=== PATIENT | female | born 1980 | race Two or more races ===

== ENCOUNTER 2016-06-14 01:17 | Inpatient (IN) | payer BC ==
--- NOTE | 2016-06-13 13:32 | PCM.LDHP ---
L&D History of Present Illness - General Date of Service: 06/13/16 Admit Problem/Dx: Admission Diagnosis/Problem Admission Diagnosis/Problem Source of Information: Patient History Limitations: Reports: No limitations - History of Present Illness Introduction:: 35 y/o . LOPEZ 06/21/16 planned repeat 06/14/16 , GBS negative. Previous section, planning repeat as noted above. Patient has had previous MMR. Prior , and had a depth given on April 2016. History of kidney surgery at age 8. No problem since Ureteroneocystostomy? A+ , negative antibody screen. Hemoglobin, hematocrit 13.2, and 38.9 on 11/24/15, platelets 195,000. Rubella titer, and, ketamine. The RPR nonreactive, urine culture mixed cristal. Negative, GC and Chlamydia probes ultrasound on 11/24/15 showed LOPEZ of 510, consistent with last menstrual period of the LOPEZ of 06/23/16 . That ultrasound performed at 7 weeks zero days. Patient had 2010 had spontaneous vaginal delivery 12/29/2008 and miscarriage 11/2013 Improves with: Reports: None Worsens with: Reports: None Associated Symptoms: Reports: N - Related Data Allergies/Adverse Reactions: Allergies Allergy/AdvReac Type Severity Reaction Status Date / Time No Known Allergies Allergy Verified 04/22/16 16:28 Home Medications: Home Meds PNV95/Ferrous Fumarate/FA [ Tablet] 1 tab PO DAILY 10/30/13 [History] Nitrofurantoin Monohyd/M-Cryst [Macrobid 100 mg Capsule] 100 mg PO BID #20 capsule 04/22/16 [Rx] Past Medical History : 4 Para: 2 (2011) LMP (Approximate): Social & Family History - Tobacco Use Smoking Status *Q: Never Smoker Second Hand Smoke Exposure: No - Alcohol Use Days Per Week of Alcohol Use: 0 Number of Drinks Per Day: 0 Total Drinks Per Week: 0 - Recreational Drug Use Recreational Drug Use: No Drug Use in Last 12 Months: No H&P Review of Systems - Review of Systems: Review Of Systems: See Below General: Reports: no symptoms HEENT: Reports: no symptoms Pulmonary: Reports: No Symptoms Cardiovascular: Reports: no symptoms Gastrointestinal: Reports: No symptoms Genitourinary: Reports: no symptoms Musculoskeletal: Reports: no symptoms Skin: Reports: no symptoms Psychiatric: Reports: no symptoms Neurological: Reports: No Symptoms Hematologic/Lymphatic: Reports: no symptoms Immunologic: Reports: no symptoms L&D Exam - Exam Exam: See Below - Vital Signs Weight: 209 lb - OB Specific Fundal Height in cm: 38 movement: active heart tones: present heart tones per min: 141 Heart Rate (FHR) Variability: Moderate (6-25 bmp) Presentation: Vertex Estimated Weight: 7.5 - Exam General: alert, oriented HEENT: Mucosa moist & pink, Pupils equal, Pupils reactive Neck: supple, trachea midline Lungs: Clear to auscultation, Normal respiratory effort Cardiovascular: regular rate, regular rhythm Abdomen: normal bowel sounds, soft Genitourinary: Normal external exam Extremities: normal inspection Skin: warm, dry, intact Neurological: reflexes equal bilateral Psychiatric: alert, normal affect, normal mood - Patient Data Lab Results last 24 hrs: Laboratory Results - last 24 hr 06/13/16 06/13/16 Range/Units 08:36 08:36 WBC 9.67 (3.98-10.04) K/mm3 RBC 4.31 (3.98-5.22) M/mm3 Hgb 10.5 L (11.2-15.7) gm/L Hct 33.8 L (34.1-44.9) % MCV 78.4 L (79.4-94.8) fl MCH 24.4 L (25.6-32.2) pg MCHC 31.1 L (32.2-35.5) g/dl RDW Std Deviation 42.1 (36.4-46.3) fL Plt Count 178 L (182-369) K/mm3 MPV 11.0 (9.4-12.3) fl Neut % (Auto) 72.4 H (34.0-71.1) % Lymph % (Auto) 19.0 L (19.3-51.7) % [place] % (Auto) 7.4 (4.7-12.5) % Eos % (Auto) 0.7 (0.7-5.8) Baso % (Auto) 0.2 (0.1-1.2) % Neut # (Auto) 6.99 H (1.56-6.13) K/mm3 Lymph # (Auto) 1.84 (1.18-3.74) K/mm3 [place] # (Auto) 0.72 H (0.24-0.36) K/mm3 Eos # (Auto) 0.07 (0.04-0.36) K/mm3 Baso # (Auto) 0.02 (0.01-0.08) K/mm3 Blood Type A POSITIVE Gel Antibody Screen Negative Result Diagrams: 06/13/16 08:36 - Problem List (1) Previous section complicating , antepartum condition or complication SNOMED Code(s): 063023345, 058923626 ICD Code: O34.219 - MATERNAL CARE FOR UNSP TYPE SCAR FROM PREVIOUS DEL Status: Acute (2) 39 weeks gestation of SNOMED Code(s): 67338739 ICD Code: Z3A.39 - 39 WEEKS GESTATION OF Status: Acute Problem List Initiated/Reviewed/Updated: No Assessment/Plan Comment:: Plan repeat section, Sunday
[2016-06-14] MEDS: Lactated Ringers 1,000 ML IV SCH ×2 (05:40→06:29)
[2016-06-14] MEDS ORDERED: ceFAZolin 2 GM in Premix Bag 1 BAG IV ONE (06:01)
[2016-06-14] MEDS ORDERED: Metoclopramide 10 MG/2 ML SDV IVPUSH ONE (06:01)
[2016-06-14] MEDS ORDERED: Sodium Chloride 0.9% 10 ML Syringe FLUSH PRN ×2 (06:01→09:14)
[2016-06-14] MEDS ORDERED: Citric Acid/Sodium Citrate Solution 30 ML Cup PO ONE (06:01)
[2016-06-14] MEDS ORDERED: Oxytocin/Lactated Ringers 10 UNIT/1,000 ML BAG IV SCH (06:15)
[2016-06-14] MEDS ORDERED: Ondansetron 4 MG/2 ML SDV ONE (06:49)
[2016-06-14] MEDS ORDERED: Morphine PF 10 MG/10 ML SDV ONE (06:49)
[2016-06-14] MEDS ORDERED: Oxytocin 10 Units/1 ML SDV ONE ×2 (06:49)
[2016-06-14] MEDS ORDERED: Lactated Ringers 2,000 ML ONE (06:49)
[2016-06-14] MEDS ORDERED: ceFAZolin 1 GM Vial ONE (06:49)
[2016-06-14] MEDS ORDERED: Bupivacaine 0.5% 30 ML SDV ONE (06:49)
[2016-06-14] MEDS ORDERED: Ketorolac 30 MG/ML SDV ONE (06:49)
--- NOTE | 2016-06-14 07:08 | PCM.PREANE ---
Preanesthetic Assessment - Anesthesia/Transfusion/Family Hx Anesthesia History: Prior Anesthesia Reaction (hot after last cssection-) Family History of Anesthesia Reaction: No Transfusion History: No Prior Transfusion(s) - Review of Systems General: No Symptoms Pulmonary: No Symptoms Cardiovascular: No Symptoms Gastrointestinal: No symptoms, Nausea (lately) Neurological: No Symptoms Other: Reports: None - Physical Assessment NPO Status Date: 06/13/16 NPO Status Time: 23:30 Pulse: 74 O2 Sat by Pulse Oximetry: 98 Blood Pressure: 116/87 Vital Signs: Last Vital Signs Temp 97.9 F 06/14/16 06:01 Pulse 74 06/14/16 05:47 Resp BP 116/87 06/14/16 05:47 Pulse Ox 98 06/14/16 05:47 Height: 5 ft 5 in Weight: 94.347 kg ASA Class: 2 Mental Status: Alert & Oriented x3 Airway Class: Mallampati = 1 Dentition: Reports: Normal Dentition Thyro-Mental Finger Breadths: 3 Mouth Opening Finger Breadths: 3 ROM/Head Extension: Full Lungs: Clear to auscultation, Normal respiratory effort Cardiovascular: Regular Rate, Regular Rhythm, No Murmurs - Lab Values: Laboratory Last Values WBC 9.67 K/mm3 (3.98-10.04) 06/13/16 08:36 RBC 4.31 M/mm3 (3.98-5.22) 06/13/16 08:36 Hgb 10.5 gm/L (11.2-15.7) L 06/13/16 08:36 Hct 33.8 % (34.1-44.9) L 06/13/16 08:36 MCV 78.4 fl (79.4-94.8) L 06/13/16 08:36 MCH 24.4 pg (25.6-32.2) L 06/13/16 08:36 MCHC 31.1 g/dl (32.2-35.5) L 06/13/16 08:36 RDW Std Deviation 42.1 fL (36.4-46.3) 06/13/16 08:36 Plt Count 178 K/mm3 (182-369) L 06/13/16 08:36 MPV 11.0 fl (9.4-12.3) 06/13/16 08:36 Neut % (Auto) 72.4 % (34.0-71.1) H 06/13/16 08:36 Lymph % (Auto) 19.0 % (19.3-51.7) L 06/13/16 08:36 Power % (Auto) 7.4 % (4.7-12.5) 06/13/16 08:36 Eos % (Auto) 0.7 (0.7-5.8) 06/13/16 08:36 Baso % (Auto) 0.2 % (0.1-1.2) 06/13/16 08:36 Neut # (Auto) 6.99 K/mm3 (1.56-6.13) H 06/13/16 08:36 Lymph # (Auto) 1.84 K/mm3 (1.18-3.74) 06/13/16 08:36 Power # (Auto) 0.72 K/mm3 (0.24-0.36) H 06/13/16 08:36 Eos # (Auto) 0.07 K/mm3 (0.04-0.36) 06/13/16 08:36 Baso # (Auto) 0.02 K/mm3 (0.01-0.08) 06/13/16 08:36 Blood Type A POSITIVE 06/13/16 08:36 Gel Antibody Screen Negative 06/13/16 08:36 - Allergies Allergies/Adverse Reactions: Allergies Allergy/AdvReac Type Severity Reaction Status Date / Time No Known Allergies Allergy Verified 06/14/16 06:00 - Blood Blood Available: Yes - Acknowledgements Anesthesia Type Planned: Spinal Pt an Appropriate Candidate for the Planned Anesthesia: Yes Alternatives and Risks of Anesthesia Discussed w Pt/Guardian: Yes Pt/Guardian Understands and Agrees with Anesthesia Plan: Yes PreAnesthesia Questionnaire Cardiovascular History: Reports: None Respiratory History: Reports: None Gastrointestinal History: Reports: GERD (last week) Other Genitourinary History: ptwas born with two ureters, 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[age] [employer] History: Reports: : 4 (39 weeks) Para: 2 - Past Surgical History HEENT Surgical History: Reports: Tonsillectomy Female Surgical History: Reports: section, Other (see below) (born with double urethra- age 8) - SUBSTANCE USE Smoking Status *Q: Never Smoker Tobacco Use Within Last Twelve Months: No Second Hand Smoke Exposure: No Days Per Week of Alcohol Use: 0 Number of Drinks Per Day: 0 Total Drinks Per Week: 0 Recreational Drug Use History: No - HOME MEDS Home Medications: Home Meds PNV95/Ferrous Fumarate/FA [ Tablet] 1 tab PO DAILY 10/30/13 [History] - CURRENT (IN HOUSE) MEDS Current Meds: Current Medications Lactated Ringer's (Ringers, Lactated) 1,000 mls @ 125 mls/hr IV ASDIRECTED REPLACED BY [facility] Last Admin: 06/14/16 06:29 Dose: 999 mls/hr Oxytocin/Lactated Ringer's (Pitocin In Lr 10 Units/1,000 Ml) 10 unit in 1,000 mls @ 100 mls/hr IV ASDIRECTED SHORTY PRN Reason: Protocol Sodium Chloride (Saline Flush) 10 ml FLUSH ASDIRECTED PRN PRN Reason: Keep Vein Open Discontinued Medications Bupivacaine HCl (Marcaine 0.5%) Confirm Administered Dose 30 ml .ROUTE .STK-MED ONE Stop: 06/14/16 06:50 Cefazolin Sodium (Ancef) Confirm Administered Dose 2 gm .ROUTE .STK-MED ONE Stop: 06/14/16 06:50 Citric Acid/Sodium Citrate (Bicitra Solution) 30 ml PO ONETIME ONE Stop: 06/14/16 06:02 Last Admin: 06/14/16 06:29 Dose: 30 ml Cefazolin Sodium/Dextrose 2 gm (/ Premix) 50 mls @ 100 mls/hr IV ONETIME ONE Stop: 06/14/16 06:30 Lactated Ringer's (Ringers, Lactated) Confirm Administered Dose 2,000 mls @ as directed .ROUTE .STK-MED ONE Stop: 06/14/16 06:50 Ketorolac Tromethamine (Toradol) Confirm Administered Dose 30 mg .ROUTE .STK- MED ONE Stop: 06/14/16 06:50 Metoclopramide HCl (Reglan) 10 mg IVPUSH ONETIME ONE Stop: 06/14/16 06:02 Last Admin: 06/14/16 06:28 Dose: 10 mg Morphine Sulfate (Duramorph Pf) Confirm Administered Dose 10 mg .ROUTE .STK-MED ONE Stop: 06/14/16 06:50 Ondansetron HCl (Zofran) Confirm Administered Dose 4 mg .ROUTE .STK-MED ONE Stop: 06/14/16 06:50 Oxytocin (Pitocin) Confirm Administered Dose 10 unit .ROUTE .STK-MED ONE Stop: 06/14/16 06:50 Oxytocin (Pitocin) Confirm Administered Dose 10 unit .ROUTE .STK-MED ONE Stop: 06/14/16 06:50
[2016-06-14] MEDS ORDERED: Phenylephrine/Normal Saline 100 MCG/ML 10 ML Syringe ONE (07:41)
[2016-06-14] MEDS ORDERED: ePHEDrine/Normal Saline 25 MG/5 ML Syringe ONE (07:41)
[2016-06-14] MEDS ORDERED: fentaNYL 100 MCG/2 ML SDV IVPUSH PRN (07:42)
[2016-06-14] MEDS ORDERED: ePHEDrine 50 MG/ML SDV IVPUSH PRN ×2 (07:42→09:14)
[2016-06-14] MEDS ORDERED: Ondansetron 4 MG/2 ML SDV IVPUSH PRN (07:42)
[2016-06-14] MEDS ORDERED: diphenhydrAMINE 50 MG/ML SDV IVPUSH PRN ×2 (07:42→09:14)
[2016-06-14] MEDS ORDERED: Meperidine PF 50 MG/ML Syringe IVPUSH PRN (07:42)
[2016-06-14] MEDS ORDERED: fentaNYL 100 MCG/2 ML SDV ONE (08:12)
--- NOTE | 2016-06-14 08:16 | PCM.POSTAN ---
POST ANESTHESIA ASSESSMENT - MENTAL STATUS Mental Status: alert, oriented - VITAL SIGNS Pulse Rate: 69 SaO2: 99 Resp Rate: 9 Blood Pressure: 113/64 Temperature: 97.8 F - RESPIRATORY Respiratory Status: respiratory rate WNL, airway patent, O2 saturation stable, supplemental oxygen - CARDIOVASCULAR CV Status: pulse rate WNL, blood pressure stable - GASTROINTESTINAL GI Status: no symptoms - PAIN Pain Score: 0 (slight discomfort right carpal tunnel. much better after fentanyl ) - POST OP HYDRATION Hydration Status: adequate & stable
--- NOTE | 2016-06-14 08:19 | PCM.OPNOTE ---
- General Post-Op/Procedure Note Date of Surgery/Procedure: 06/14/16 Operative Procedure(s): Repeat section Pre Op Diagnosis: Previous section, 39 weeks, estimated gestational age Post-Op Diagnosis: Same Anesthesia Technique: Spinal Primary Surgeon: Garret Soto Secondary Surgeon: Palomo Diallo Anesthesia Provider: Kiara Hood Fluid Replacement, Intraop: 2,900 Output, Urine Amount: 100 EBL in mLs: 500 Drain/Tube Comments:: Rivera to gravity drainage, closed system Complications: None Condition: Good Free Text/Narrative:: Patient was transported to operating room #1, placed under spinal anesthesia in the supine position with wedge under the right hip and right flank, vaginal and abdominal prep performed. Rivera catheter placed gravity drainage. SCDs in place and functioning. Prior surgery. Ancef 2 g given intravenously, prior surgery. Timeout performed confirming name, date of , and procedures repeat section. The patient was draped in sterile fashion. After level of anesthesia was confirmed. brought to the operating room milliliters. Of 0.5% Marcaine injected into the area of the planned incision. Pfannenstiel incision made, carried to and sharp section to into the anterior fascia. Cavity was entered without difficulty. Bladder flap created pushed caudad and a low segment transverse delivered. A male live born at 07 , 38 hours on Sunday, Apgars 8/9. Weight 8 pounds, 0 ounces nuchal cord x1 easily reduced. Cord was clamped, and, three-vessel cord noted. Blood collected for routine cord blood studies. Placenta removed manually, and nature cavity inspected cleaned of remnants of membranes, cervical patency assured in the uterine incision closed, running, locking suture of #0 Monocryl, followed by our level indicating layer of 0 Monocryl. Sponge, needle, pack, and sharp count correct, times one on closure. Uterus, x2 on closure. Abdominal cavity. Both ovaries appeared normal. Uterus. Placed in the abdominal cavity. Additional [id number] suture. X3, placed for hemostasis. No bleeding. Sponge, needle, pack, and splint sharp count abdomen. Correct, x2. The abdominal cavity, closed with #1 PDS for the anterior fascia. Irrigation carried out, subcutaneous tissue, electrocoagulated to allow closure of the incision and approximation, and the skin was closed with subcuticular suture of 3-0 Monocryl. Ayo needle, and Dermabond. Prenio applied. Clots cleaned from the vagina. Patient transported post anesthesia care unit in satisfactory condition. No blood transfusion is required none anticipated. Patient did receive Toradol. Additional 3 doses ordered. Every 6 hours. Postop
[2016-06-14] MEDS ORDERED: Dextrose 5%-0.45% NaCl 1,000 ML IV SCH (09:14)
[2016-06-14] MEDS ORDERED: Lanolin 100% Cream 7 GM Tube TOP PRN (09:14)
[2016-06-14] MEDS ORDERED: Docusate Sodium 100 MG Cap PO PRN (09:14)
[2016-06-14] MEDS ORDERED: Ondansetron 4 MG/2 ML SDV IV PRN (09:14)
[2016-06-14] MEDS ORDERED: Naloxone 0.4 MG/ML SDV IVPUSH PRN (09:14)
[2016-06-14] MEDS ORDERED: Acetaminophen 325 MG Tab PO PRN (09:14)
[2016-06-14] MEDS: Dextrose 5%-Lactated Ringers 1,000 ML IV SCH ×2 (10:31→14:33)
[2016-06-14] MEDS ORDERED: Haloperidol Lactate 5 MG/ML SDV IVPUSH ONE (10:53)
[2016-06-14] MEDS: Prenatal Multivitamin with Calcium/Folic Acid/Iron Tab PO SCH (11:01)
--- NOTE | 2016-06-14 11:01 | PCM.SN ---
- Free Text/Narrative Note: 06/14/16 1050 Patient complains of nausea and feeling hot again like she did with the last csection. Vitals stable. IV infusing. Dr. Soto notified and haldol 1 mg IV ordered. Josesito
[2016-06-14] MEDS: Ketorolac 30 MG/ML SDV IVPUSH SCH ×2 (14:33→21:00)
[2016-06-14] MEDS ORDERED: Sodium Chloride 0.9% 500 ML IV ONE (17:56)
[2016-06-14] MEDS ORDERED: Promethazine 25 MG/ML SDV IM ONE (17:57)
[2016-06-15] MEDS: Ketorolac 30 MG/ML SDV IVPUSH SCH (02:04)
[2016-06-15] MEDS: Acetaminophen/oxyCODONE 325-5 MG Tab PO PRN ×4 (04:28→19:39)
--- NOTE | 2016-06-15 07:55 | PCM.SN ---
- Free Text/Narrative Note: Afebrile, victoria removed, due to void, uterus involuting normally, incision normal, no leg cramping.
[2016-06-15] MEDS: Prenatal Multivitamin with Calcium/Folic Acid/Iron Tab PO SCH (08:22)
[2016-06-15] MEDS: Ibuprofen 600 MG Tab PO PRN ×3 (09:23→22:48)
[2016-06-16] MEDS: Acetaminophen/oxyCODONE 325-5 MG Tab PO PRN ×2 (00:42→07:32)
[2016-06-16 05:46] VITALS: BP 112/61
[2016-06-16] MEDS: Prenatal Multivitamin with Calcium/Folic Acid/Iron Tab PO SCH (07:33)
--- NOTE | 2016-06-16 07:43 | PCM.DCSUM1 ---
Discharge Summary - Hospital Course Free Text/Narrative:: [facility] Post-Op/Procedure Note Patient Name: WENDY THOMAS Date of : 84 Patient Status: Inpatient Attending Provider: Garret Soto Date: 06/14/16 08:12 Initialization Date: 06/14/16 08:12 - General Post-Op/Procedure Note Date of Surgery/Procedure: 06/14/16 Operative Procedure(s): Repeat section Pre Op Diagnosis: Previous section, 39 weeks, estimated gestational age Post-Op Diagnosis: Same Anesthesia Technique: Spinal Primary Surgeon: Garret Soto Secondary Surgeon: Palomo Diallo Anesthesia Provider: Kiara Hood Fluid Replacement, Intraop: 2,900 Output, Urine Amount: 100 EBL in mLs: 500 Drain/Tube Comments:: Rivera to gravity drainage, closed system Complications: None Condition: Good Free Text/Narrative:: Patient was transported to operating room #1, placed under spinal anesthesia in the supine position with wedge under the right hip and right flank, vaginal and abdominal prep performed. Rivera catheter placed gravity drainage. SCDs in place and functioning. Prior surgery. Ancef 2 g given intravenously, prior surgery. Timeout performed confirming name, date of , and procedures repeat section. The patient was draped in sterile fashion. After level of anesthesia was confirmed. brought to the operating room milliliters. Of 0.5% Marcaine injected into the area of the planned incision. Pfannenstiel incision made, carried to and sharp section to into the anterior fascia. Cavity was entered without difficulty. Bladder flap created pushed caudad and a low segment transverse delivered. A male live born at 07 , 38 hours on Sunday, Apgars 8/9. Weight 8 pounds, 0 ounces nuchal cord x1 easily reduced. Cord was clamped, and, three-vessel cord noted. Blood collected for routine cord blood studies. Placenta removed manually, and nature cavity inspected cleaned of remnants of membranes, cervical patency assured in the uterine incision closed, running, locking suture of #0 Monocryl, followed by our level indicating layer of 0 Monocryl. Sponge, needle, pack, and sharp count correct, times one on closure. Uterus, x2 on closure. Abdominal cavity. Both ovaries appeared normal. Uterus. Placed in the abdominal cavity. Additional [id number] suture. X3, placed for hemostasis. No bleeding. Sponge, needle, pack, and splint sharp count abdomen. Correct, x2. The abdominal cavity, closed with #1 PDS for the anterior fascia. Irrigation carried out, subcutaneous tissue, electrocoagulated to allow closure of the incision and approximation, and the skin was closed with subcuticular suture of 3-0 Monocryl. Ayo needle, and Dermabond. Prenio applied. Clots cleaned from the vagina. Patient transported post anesthesia care unit in satisfactory condition. No blood transfusion is required none anticipated. Patient did receive Toradol. Additional 3 doses ordered. Every 6 hours. Postop HPI Initial Comments: [facility] Post-Op/Procedure Note Patient Name: WENDY THOMAS Date of : 84 Patient Status: Inpatient Attending Provider: Garret Soto Date: 06/14/16 08:12 Initialization Date: 06/14/16 08:12 - General Post-Op/Procedure Note Date of Surgery/Procedure: 06/14/16 Operative Procedure(s): Repeat section Pre Op Diagnosis: Previous section, 39 weeks, estimated gestational age Post-Op Diagnosis: Same Anesthesia Technique: Spinal Primary Surgeon: Garret Soto Secondary Surgeon: Palomo Diallo Anesthesia Provider: Kiara Hood Fluid Replacement, Intraop: 2,900 Output, Urine Amount: 100 EBL in mLs: 500 Drain/Tube Comments:: Rivera to gravity drainage, closed system Complications: None Condition: Good Free Text/Narrative:: Patient was transported to operating room #1, placed under spinal anesthesia in the supine position with wedge under the right hip and right flank, vaginal and abdominal prep performed. Rivera catheter placed gravity drainage. SCDs in place and functioning. Prior surgery. Ancef 2 g given intravenously, prior surgery. Timeout performed confirming name, date of , and procedures repeat section. The patient was draped in sterile fashion. After level of anesthesia was confirmed. brought to the operating room milliliters. Of 0.5% Marcaine injected into the area of the planned incision. Pfannenstiel incision made, carried to and sharp section to into the anterior fascia. Cavity was entered without difficulty. Bladder flap created pushed caudad and a low segment transverse delivered. A male live born at 07 , 38 hours on Sunday, Apgars 8/9. Weight 8 pounds, 0 ounces nuchal cord x1 easily reduced. Cord was clamped, and, three-vessel cord noted. Blood collected for routine cord blood studies. Placenta removed manually, and nature cavity inspected cleaned of remnants of membranes, cervical patency assured in the uterine incision closed, running, locking suture of #0 Monocryl, followed by our level indicating layer of 0 Monocryl. Sponge, needle, pack, and sharp count correct, times one on closure. Uterus, x2 on closure. Abdominal cavity. Both ovaries appeared normal. Uterus. Placed in the abdominal cavity. Additional [id number]-td-[id number] suture. X3, placed for hemostasis. No bleeding. Sponge, needle, pack, and splint sharp count abdomen. Correct, x2. The abdominal cavity, closed with #1 PDS for the anterior fascia. Irrigation carried out, subcutaneous tissue, electrocoagulated to allow closure of the incision and approximation, and the skin was closed with subcuticular suture of 3-0 Monocryl. Ayo needle, and Dermabond. Prenio applied. Clots cleaned from the vagina. Patient transported post anesthesia care unit in satisfactory condition. No blood transfusion is required none anticipated. Patient did receive Toradol. Additional 3 doses ordered. Every 6 hours. Postop Brief History: [facility] . Post-Op/Procedure Note. Patient Name: Kavin THOMAS Record Number: [id number]. Date of : Patient Status: Inpatient. Attending Provider: Garret Sotoccount Number: [id number]. Date: 06/14/16 08:12Initialization Date: 06/14/16 08:12. - General Post-Op/Procedure Note. Date of Surgery/Procedure: 06/14/16. Operative Procedure(s): Repeat section. Pre Op Diagnosis: Previous section, 39 weeks, estimated gestational age. Post-Op Diagnosis: Same. Anesthesia Technique: Spinal. Primary Surgeon: Garret Soto. Secondary Surgeon: Palomo Diallo. Anesthesia Provider: Kiara Hood. Fluid Replacement, Intraop: 2,900. Output, Urine Amount: 100. EBL in mLs: 500. Drain/Tube Comments:: Rivera to gravity drainage, closed system. Complications: None. Condition: Good. Free Text/Narrative:: Patient was transported to operating room #1, placed under spinal anesthesia in the supine position with wedge under the right hip and right flank, vaginal and abdominal prep performed. Rivera catheter placed gravity drainage. SCDs in place and functioning. Prior surgery. Ancef 2 g given intravenously, prior surgery. Timeout performed confirming name, date of , and procedures repeat section. The patient was draped in sterile fashion. After level of anesthesia was confirmed. brought to the operating room milliliters. Of 0.5% Marcaine injected into the area of the planned incision. Pfannenstiel incision made, carried to and sharp section to into the anterior fascia. Cavity was entered without difficulty. Bladder flap created pushed caudad and a low segment transverse delivered. A male live born at 07, 38 hours on Sunday, Apgars 8/9. Weight 8 pounds, 0 ounces nuchal cord x1 easily reduced. Cord was clamped, and, three-vessel cord noted. Blood collected for routine cord blood studies. Placenta removed manually, and nature cavity inspected cleaned of remnants of membranes, cervical patency assured in the uterine incision closed, running, locking suture of #0 Monocryl, followed by our level indicating layer of 0 Monocryl. Sponge, needle, pack, and sharp count correct, times one on closure. Uterus, x2 on closure. Abdominal cavity. Both ovaries appeared normal. Uterus. Placed in the abdominal cavity. Additional [id number] suture. X3, placed for hemostasis. No bleeding. Sponge, needle, pack, and splint sharp count abdomen. Correct, x2. The abdominal cavity, closed with #1 PDS for the anterior fascia. Irrigation carried out, subcutaneous tissue, electrocoagulated to allow closure of the incision and approximation, and the skin was closed with subcuticular suture of 3-0 Monocryl. Ayo needle, and Dermabond. Prenio applied. Clots cleaned from the vagina. Patient transported post anesthesia care unit in satisfactory condition. No blood transfusion is required none anticipated. Patient did receive Toradol. Additional 3 doses ordered. Every 6 hours. Postop - Discharge Data Discharge Date: 06/16/16 Discharge Disposition: Home, Self-Care 01 Condition: Good - Discharge Diagnosis/Problem(s) (1) Previous section complicating , antepartum condition or complication SNOMED Code(s): 667794504, 799211299 ICD Code: O34.219 - MATERNAL CARE FOR UNSP TYPE SCAR FROM PREVIOUS DEL Status: Acute Current Visit: Yes (2) 39 weeks gestation of SNOMED Code(s): 91230237 ICD Code: Z3A.39 - 39 WEEKS GESTATION OF Status: Acute Current Visit: Yes (3) Nuchal cord without compression, delivered, current hospitalization SNOMED Code(s): 15245809 ICD Code: O69.81X0 - LABOR AND DEL COMP BY CORD AROUND NECK, W/O COMPRSN, UNSP Status: Acute Current Visit: Yes - Patient Summary/Data Operative Procedure(s) Performed: Repeat section Complications: none Consults: none Hospital Course: uneventful - Patient Instructions Diet: Heart Healthy Diet Driving: Do Not Drive (x4 weeks) Showering/Bathing: June Shower Wound/Incision Care: Keep Operative Site/Wound Site Clean and Dry Notify Provider of: Fever, Increased Pain, Swelling and Redness, Drainage, Nausea and/or Vomiting - Discharge Plan Prescriptions/Med Rec: Acetaminophen/oxyCODONE [Percocet 325-5 MG] 1 tab PO Q6H PRN #30 tablet PRN Reason: Pain Ibuprofen [IJD: Ibuprofen] 600 mg PO Q6H PRN #50 tablet PRN Reason: Pain Home Medications: Home Meds PNV95/Ferrous Fumarate/FA [ Tablet] 1 tab PO DAILY 10/30/13 [History] Acetaminophen [Tylenol] 650 mg PO Q6H PRN #0 tablet 06/16/16 [Rx] Acetaminophen/oxyCODONE [Percocet 325-5 MG] 1 tab PO Q6H PRN #30 tablet [Rx] Docusate Sodium [Colace] 100 mg PO Q12H PRN #0 cap 06/16/16 [Rx] Ibuprofen [IJD: Ibuprofen] 600 mg PO Q6H PRN #50 tablet 06/16/16 [Rx] Referrals: Garret Soto MD [Physician] - (5 weeks) - Discharge Summary/Plan Comment DC Time >30 min.: No - Patient Data Vitals - Most Recent: Last Vital Signs Temp 98.1 F 06/16/16 04:00 Pulse 64 06/16/16 04:00 Resp 18 06/16/16 04:00 BP 112/61 06/16/16 04:00 Pulse Ox 100 06/16/16 04:00 Weight - Most Recent: 208 lb I&O - Last 24 hours: Intake & Output 06/15/16 06/16/16 06/16/16 22:59 06:59 14:59 Intake Total 0 Balance 0 Med Orders - Current: Current Medications Acetaminophen (Tylenol) 650 mg PO Q4H PRN PRN Reason: mild pain or fever Diphenhydramine HCl (Benadryl) 25 mg IVPUSH Q6H PRN PRN Reason: Itching or Nausea Docusate Sodium (Colace) 100 mg PO Q12H PRN PRN Reason: Constipation Emollient Ointment (Lansinoh Hpa) 0 gm TOP ASDIRECTED PRN PRN Reason: Sore Nipples Ephedrine Sulfate (Ephedrine Sulfate) 5 mg IVPUSH SEECOMMENT PRN PRN Reason: Other Dextrose/Sodium Chloride (Dextrose 5%-1/2 Ns) 1,000 mls @ 125 mls/hr IV ASDIRECTED [facility] Last Admin: 06/14/16 14:36 Dose: 125 mls/hr Ibuprofen (Motrin) 600 mg PO Q6H PRN PRN Reason: mild pain or fever Last Admin: 06/15/16 22:48 Dose: 600 mg Naloxone HCl (Narcan) 0.1 mg IVPUSH SEECOMMENT PRN PRN Reason: Respiratory Depression Ondansetron HCl (Zofran) 4 mg IV Q8H PRN PRN Reason: Nausea/Vomiting Last Admin: 06/14/16 17:38 Dose: 4 mg Oxycodone/Acetaminophen (Percocet 325-5 Mg) 2 tab PO Q4H PRN PRN Reason: Pain (moderate 4-6) Last Admin: 06/16/16 07:32 Dose: 2 tab Prenat Multivit/Ridgeside/Iron/Folic Ac ( Plus Iron) 1 each PO DAILY [facility] Last Admin: 06/16/16 07:33 Dose: 1 each Sodium Chloride (Saline Flush) 10 ml FLUSH ASDIRECTED PRN PRN Reason: Keep Vein Open Discontinued Medications Bupivacaine HCl (Marcaine 0.5%) Confirm Administered Dose 30 ml .ROUTE .STK-MED ONE Stop: 06/14/16 06:50 Last Admin: 06/14/16 07:35 Dose: 20 ml Cefazolin Sodium (Ancef) Confirm Administered Dose 2 gm .ROUTE .STK-MED ONE Stop: 06/14/16 06:50 Citric Acid/Sodium Citrate (Bicitra Solution) 30 ml PO ONETIME ONE Stop: 06/14/16 06:02 Last Admin: 06/14/16 06:29 Dose: 30 ml Diphenhydramine HCl (Benadryl) 25 mg IVPUSH Q6H PRN PRN Reason: pruritis Ephedrine Sulfate (Ephedrine In Ns) Confirm Administered Dose 25 mg .ROUTE .STK- MED ONE Stop: 06/14/16 07:42 Ephedrine Sulfate (Ephedrine Sulfate) 5 mg IVPUSH ASDIRECTED PRN PRN Reason: Hypotension Fentanyl (Sublimaze) 50 mcg IVPUSH Q5M PRN PRN Reason: Pain Fentanyl (Sublimaze) Confirm Administered Dose 100 mcg .ROUTE .STK-MED ONE Stop: 06/14/16 08:13 Haloperidol Lactate (Haldol) 1 mg IVPUSH ONETIME ONE Stop: 06/14/16 10:54 Last Admin: 06/14/16 11:26 Dose: 1 mg Lactated Ringer's (Ringers, Lactated) 1,000 mls @ 125 mls/hr IV ASDIRECTED [facility] Last Admin: 06/14/16 06:29 Dose: 999 mls/hr Oxytocin/Lactated Ringer's (Pitocin In Lr 10 Units/1,000 Ml) 10 unit in 1,000 mls @ 100 mls/hr IV ASDIRECTED [facility] PRN Reason: Protocol Cefazolin Sodium/Dextrose 2 gm (/ Premix) 50 mls @ 100 mls/hr IV ONETIME ONE Stop: 06/14/16 06:30 Last Admin: 06/14/16 15:32 Dose: Not Given Lactated Ringer's (Ringers, Lactated) Confirm Administered Dose 2,000 mls @ as directed .ROUTE .STK-MED ONE Stop: 06/14/16 06:50 Dextrose/Lactated Ringer's (Dextrose 5%-Lactated Ringers) 1,000 mls @ 125 mls/ hr IV ASDIRECTED [facility] Stop: 06/14/16 17:13 Last Admin: 06/14/16 14:33 Dose: 125 mls/hr Sodium Chloride (Normal Saline) 500 mls @ 999 mls/hr IV .BOLUS ONE Stop: 06/14/16 18:26 Last Admin: 06/14/16 18:18 Dose: 999 mls/hr Ketorolac Tromethamine (Toradol) Confirm Administered Dose 30 mg .ROUTE .STK- MED ONE Stop: 06/14/16 06:50 Ketorolac Tromethamine (Toradol) 30 mg IVPUSH Q6H [facility] Stop: 06/15/16 02:01 Last Admin: 06/15/16 02:04 Dose: 30 mg Meperidine HCl (Demerol) 12.5 mg IVPUSH ONETIME PRN PRN Reason: shivering Stop: 06/15/16 07:43 Metoclopramide HCl (Reglan) 10 mg IVPUSH ONETIME ONE Stop: 06/14/16 06:02 Last Admin: 06/14/16 06:28 Dose: 10 mg Morphine Sulfate (Duramorph Pf) Confirm Administered Dose 10 mg .ROUTE .STK-MED ONE Stop: 06/14/16 06:50 Ondansetron HCl (Zofran) Confirm Administered Dose 4 mg .ROUTE .STK-MED ONE Stop: 06/14/16 06:50 Ondansetron HCl (Zofran) 4 mg IVPUSH ONETIME PRN PRN Reason: Nausea/Vomiting Last Admin: 06/14/16 08:59 Dose: 4 mg Oxytocin (Pitocin) Confirm Administered Dose 10 unit .ROUTE .STK-MED ONE Stop: 06/14/16 06:50 Oxytocin (Pitocin) Confirm Administered Dose 10 unit .ROUTE .STK-MED ONE Stop: 06/14/16 06:50 Phenylephrine HCl (Phenylephrine In Ns 100 Mcg/Ml) Confirm Administered Dose 1 mg .ROUTE .STK-MED ONE Stop: 06/14/16 07:42 Promethazine HCl (Phenergan) 12.5 mg IM ONETIME ONE Stop: 06/14/16 17:58 Last Admin: 06/15/16 05:17 Dose: Not Given Sodium Chloride (Saline Flush) 10 ml FLUSH ASDIRECTED PRN PRN Reason: Keep Vein Open *Q Meaningful Use (DIS) - VTE *Q VTE Criteria *Q: - Stroke *Q Stroke Criteria *Q: - AMI *Q AMI Criteria *Q:
== END 2016-06-16 10:00 | disposition home or self-care (01) | DRG 540 ==
LOC: JD.OB 04:54
PROVIDERS: ADMIT Obstetrics & Gynecology; ATTEND Obstetrics & Gynecology
PROC: 10D00Z1 Extraction of Products of Conception, Low, Open Approach (ICD-10-PCS; principal; 2016-06-14)
DX: O34.211 Maternal care for low transverse scar from previous cesarean delivery (principal); N85.8 Other specified noninflammatory disorders of uterus; Z3A.39 39 weeks gestation of pregnancy; Z37.0 Single live birth; R11.0 Nausea
CPT/HCPCS: 01961; 36415; 85025; 86850; 86900; 86901; 94762; A9270-GY; J0690; J1630; J1885; J2270; J2405; J2590; J2765; J3010; J7040; J7042; J7050; J7120

== ENCOUNTER 2017-03-17 08:24 | Emergency (ER) | payer BC ==
--- NOTE | 2017-03-17 08:39 | EDM.PDOC ---
ED HPI GENERAL MEDICAL PROBLEM - General Chief Complaint: Flank Pain Stated Complaint: L SIDE FLANK PAIN Time Seen by Provider: 03/17/17 08:38 - History of Present Illness INITIAL COMMENTS - FREE TEXT/NARRATIVE: 36-year-old female presents emergency room with lower abdominal discomfort and left-sided abdominal discomfort. This started about 10:00 last night has progressively gotten worse she has a fullness over her bladder. She's not had any fevers or chills. She's had no nausea or vomiting she's had some discomfort occasionally the pain wraps around from her left flank into her abdomen. She denies any possibility of at this time she did have a recent delivery. 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 CT was done and is negative for acute kidney stone she has a concerning area in her bladder this probably represents a diverticuli she has some air in it she has some calcifications around the bladderspecific calcification within the ureter no hydronephrosis noted she has some parenchymal calcifications noted within the left kidney. Patient understands the results of the CAT scan no obvious kidney stone. The patient does agree to return to the emergency room with any fevers chills worsening symptoms. She's not significantly better in 12-24 hours she agrees to return to emergency room. 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[age] [employer] History: Reports: - Past Surgical History Female Surgical History: Reports: Section, Other (See Below) Social & Family History - Tobacco Use Smoking Status *Q: Never Smoker Second Hand Smoke Exposure: No - Caffeine Use Caffeine Use: Reports: None - Alcohol Use Days Per Week of Alcohol Use: 0 Number of Drinks Per Day: 0 Total Drinks Per Week: 0 - Recreational Drug Use Recreational Drug Use: No Drug Use in Last 12 Months: No ED ROS GENERAL - Review of Systems Review Of Systems: See Below Constitutional: Denies: Fever, Chills HEENT: Reports: No Symptoms Respiratory: Reports: No Symptoms Cardiovascular: Reports: No Symptoms GI/Abdominal: Reports: Abdominal Pain. Denies: Constipation, Diarrhea, Nausea, Vomiting : Reports: Dysuria, Flank Pain, Frequency. Denies: Hematuria, Irregular Menses, Urgency Musculoskeletal: Reports: No Symptoms Neurological: Reports: No Symptoms ED EXAM, GI/ABD - Physical Exam Exam: See Below Exam Limited By: No Limitations General Appearance: Alert, No Apparent Distress Head: Atraumatic, Normocephalic Neck: Normal Inspection, Supple, Non-Tender, Full Range of Motion Respiratory/Chest: No Respiratory Distress, Lungs Clear, Normal Breath Sounds Cardiovascular: Regular Rate, Rhythm, No Edema, No Murmur GI/Abdominal Exam: Normal Bowel Sounds, Soft, Other (She has some suprapubic discomfort with palpation no other discomfort noted no rigidity rebound or guarding noted) Back Exam: Normal Inspection, CVA Tenderness (L). No: CVA Tenderness (R) Neurological: Alert, Normal Cognition Course - Vital Signs Last Recorded V/S: Last Vital Signs Temp 36.7 C 03/17/17 08:35 Pulse 97 03/17/17 08:35 Resp 12 03/17/17 08:35 BP 111/76 03/17/17 08:35 Pulse Ox 100 03/17/17 08:35 - Orders/Labs/Meds Orders: Active Orders 24 hr Category Date Time Status CULTURE URINE [RM] Stat Lab 03/17/17 08:35 Received Labs: Laboratory Tests 03/17/17 03/17/17 03/17/17 Range/Units 08:35 08:35 08:40 WBC 8.29 (3.98-10.04) K/mm3 RBC 5.24 H (3.98-5.22) M/mm3 Hgb 14.9 (11.2-15.7) gm/L Hct 44.0 (34.1-44.9) % MCV 84.0 (79.4-94.8) fl MCH 28.4 (25.6-32.2) pg MCHC 33.9 (32.2-35.5) g/dl RDW Std Deviation 40.6 (36.4-46.3) fL Plt Count 198 (182-369) K/mm3 MPV 10.3 (9.4-12.3) fl Neutrophils % (Manual) 68 H (40-60) % Band Neutrophils % 0 (0-10) % Lymphocytes % (Manual) 28 (20-40) % Atypical Lymphs % 0 % Monocytes % (Manual) 3 (2-10) % Eosinophils % (Manual) 1 (0.7-5.8) % Basophils % (Manual) 0 L (0.1-1.2) Platelet Estimate Adequate RBC Morph Comment Normal Sodium (136-145) mEq/L Potassium (3.5-5.1) mEq/L Chloride (98-107) mEq/L Carbon Dioxide (21-32) mEq/L Anion Gap (5-15) BUN (7-18) mg/dL Creatinine (0.55-1.02) mg/dL Est Cr Clr Drug Dosing mL/min Estimated GFR (MDRD) (>60) mL/min BUN/Creatinine Ratio (14-18) Glucose (74-106) mg/dL Calcium (8.5-10.1) mg/dL Urine Color Yellow (Yellow) Urine Appearance Cloudy H (Clear) Urine pH 7.0 (5.0-8.0) Ur Specific [place] > or = 1.030 (1.005-1.030) Urine Protein 3+ H (Negative) Urine Glucose (UA) Negative (Negative) Urine Ketones Negative (Negative) Urine Occult Blood 3+ H (Negative) Urine Nitrite Positive H (Negative) Urine Bilirubin Negative (Negative) Urine Urobilinogen 0.2 (0.2-1.0) Ur Leukocyte Esterase 1+ H (Negative) Urine RBC 75-100 H (0-5) /hpf Urine WBC >100 H (0-5) /hpf Ur Epithelial Cells 10-20 H (0-5) /hpf Urine Bacteria Many H (FEW) /hpf Urine Mucus Not seen (FEW) /hpf Urine HCG, Qual Negative (NEGATIVE) 03/17/17 Range/Units 08:40 WBC (3.98-10.04) K/mm3 RBC (3.98-5.22) M/mm3 Hgb (11.2-15.7) gm/L Hct (34.1-44.9) % MCV (79.4-94.8) fl MCH (25.6-32.2) pg MCHC (32.2-35.5) g/dl RDW Std Deviation (36.4-46.3) fL Plt Count (182-369) K/mm3 MPV (9.4-12.3) fl Neutrophils % (Manual) (40-60) % Band Neutrophils % (0-10) % Lymphocytes % (Manual) (20-40) % Atypical Lymphs % % Monocytes % (Manual) (2-10) % Eosinophils % (Manual) (0.7-5.8) % Basophils % (Manual) (0.1-1.2) Platelet Estimate RBC Morph Comment Sodium 140 (136-145) mEq/L Potassium 3.9 (3.5-5.1) mEq/L Chloride 105 (98-107) mEq/L Carbon Dioxide 26 (21-32) mEq/L Anion Gap 12.9 (5-15) BUN 16 (7-18) mg/dL Creatinine 0.8 (0.55-1.02) mg/dL Est Cr Clr Drug Dosing 89.16 mL/min Estimated GFR (MDRD) > 60 (>60) mL/min BUN/Creatinine Ratio 20.0 H (14-18) Glucose 88 (74-106) mg/dL Calcium 9.1 (8.5-10.1) mg/dL Urine Color (Yellow) Urine Appearance (Clear) Urine pH (5.0-8.0) Ur Specific [place] (1.005-1.030) Urine Protein (Negative) Urine Glucose (UA) (Negative) Urine Ketones (Negative) Urine Occult Blood (Negative) Urine Nitrite (Negative) Urine Bilirubin (Negative) Urine Urobilinogen (0.2-1.0) Ur Leukocyte Esterase (Negative) Urine RBC (0-5) /hpf Urine WBC (0-5) /hpf Ur Epithelial Cells (0-5) /hpf Urine Bacteria (FEW) /hpf Urine Mucus (FEW) /hpf Urine HCG, Qual (NEGATIVE) Meds: Medications Discontinued Medications Generic Name Dose Route Start Last Admin Trade Name Freq PRN Reason Stop Dose Admin Acetaminophen 975 mg 03/17/17 09:53 03/17/17 09:55 Tylenol PO 03/17/17 09:54 975 mg NOW ONE Administration Acetaminophen Confirm 03/17/17 10:00 03/17/17 11:14 Tylenol Administered 02/03/18 10:01 Not Given Dose 975 mg .ROUTE .STK-MED ONE Hydrocodone Bitart/Acetaminophen 1 tab 03/17/17 09:03 03/17/17 09:49 [place] 325-5 Mg PO 03/17/17 09:04 Not Given ONETIME ONE Levofloxacin/Dextrose 500 mg/ 100 mls @ 100 mls/hr 03/17/17 09:00 03/17/17 09 :45 Premix IV 03/17/17 09:59 100 mls/hr ONETIME ONE Administration Lactated Ringer's 500 mls @ 999 mls/hr 03/17/17 10:56 03/17/17 11:14 Ringers, Lactated IV 03/17/17 11:26 999 mls/hr .BOLUS ONE Administration Ketorolac Tromethamine 30 mg 03/17/17 10:57 03/17/17 11:09 Toradol IVPUSH 03/17/17 10:58 30 mg ONETIME ONE Administration - Re-Assessments/Exams Free Text/Narrative Re-Assessment/Exam: 03/17/17 10:55 Labs suggestive of a urinary tract infection culture set up CBC no significant white count abnormality basic metabolic panel okay. The pain she is having is clearly different from her prior infections she has a strong family history of kidney stones we will check a CT KUB. Discussed the pros and cons of CT scanning with the patient she would like to pursue this option at this point. Departure - Departure Time of Disposition: 12:13 Disposition: Home, Self-Care 01 Clinical Impression: Pyelonephritis - Discharge Information Prescriptions: Ciprofloxacin HCl [Cipro] 500 mg PO Q12H #18 tablet Referrals: PCP,None [Primary Care Provider] - Forms: ED Department Discharge Additional Instructions: Return to emergency room with any questions problems or worsening symptoms return with the development of significant fevers worsening pain or just not improving in 12-24 hours. He was started on a antibiotic you have received one that will last few 24 hours here in the emergency department get her prescription filled today started tomorrow morning take one twice daily until all gone. Follow-up in the clinic on Sunday or Sunday for recheck. - My Orders Last 24 Hours: My Active Orders 03/17/17 08:35 CULTURE URINE [RM] Stat - Assessment/Plan Last 24 Hours: My Active Orders 03/17/17 08:35 CULTURE URINE [RM] Stat
[2017-03-17 08:47] VITALS: BP 111/76
[2017-03-17] MEDS ORDERED: Levofloxacin/Dextrose 5%-Water 500 MG in Premix Bag 1 BAG IV ONE (09:00)
[2017-03-17] MEDS ORDERED: Acetaminophen/HYDROcodone 325-5 MG Tab PO ONE (09:03)
[2017-03-17] MEDS ORDERED: Acetaminophen 325 MG Tab PO ONE (09:53)
[2017-03-17] MEDS ORDERED: Acetaminophen 325 MG Tab ONE (10:00)
[2017-03-17] MEDS ORDERED: Lactated Ringers 500 ML IV ONE (10:56)
[2017-03-17] MEDS ORDERED: Ketorolac 30 MG/ML SDV IVPUSH ONE (10:57)
--- NOTE | 2017-03-17 11:51 | CT ---
Addendum: Body the report states a small cystic area anterior to the bladder may represent a small ureteral cyst or small bladder diverticulum. The word ureteral cyst should be replaced by urachal cyst. --- Addendum1 above dictated on [03/20/2017 13:59] by [Shelbi Reyes Hilton J.] --- --- Addendum1 above signed on [03/20/2017 14:01] by [Shelbi Reyes Hilton J.] --- --- Original report below dictated on [03/17/2017 11:48] by [Shelbi Reyes Hilton J.] --- --- Original report below signed on [03/17/2017 11:48] by [Shelbi Reyes Hilton J.] --- CT abdomen and pelvis Technique: Multiple axial sections were obtained from above the dome of the diaphragm inferiorly through the pubic symphysis. Intravenous and oral contrast not utilized. Study has been performed as a ureteral stone protocol. Comparison: No prior renal exam. Findings: Areas of scarring are seen within the left kidney. Calcifications are seen within the left kidney most of which appear to be parenchymal in location. No calcifications are appreciated within collecting systems of either kidney. Numerous calcifications are seen within the lower left pelvis which are believed to represent phleboliths. I do not see any definite calcifications along the course of the ureters to indicate a ureteral stone. Visualized lung bases shows nothing acute. Liver has a unremarkable noncontrast appearance. Spleen size measures at the upper limits of normal with a length of 13.3 cm. Adrenal glands show no nodule. No discrete abnormality within the pancreas is seen. Gallbladder contains no calcified gallstones. Aorta shows no aneurysmal dilatation. No retroperitoneal adenopathy is seen. No pelvic mass or adenopathy is identified. Appendix not visualized with certainty. No inflammatory change or free fluid is seen within the abdomen or within the pelvis. Small cystic area seen anterior to the bladder measuring about 1 cm. This may represent a small ureteral cyst or small bladder diverticulum. Small mesenteric lymph nodes are seen which are mildly prominent in number and size. Bone window settings were reviewed which appear within normal limits for the patient's age. Impression: 1. Areas of cortical scarring within the left kidney. Numerous parenchymal calcifications are seen. No calcifications are seen within the collecting systems of either kidney. No ureteral calculi are appreciated. 2. 1 cm cystic area anterior to the bladder either due to small bladder diverticula or small urachal cyst. 3. Spleen size at the upper limits of normal measuring 13.3 cm. Mildly prominent mesenteric lymph nodes. Recommend follow-up CT abdomen study in 6 months to evaluate for stability. 4. Other incidental findings as noted above. Diagnostic code #9 --- Addendum1 signed ---
== END 2017-03-17 12:35 | disposition home or self-care (01) ==
LOC: JD.ED 08:24
DX: N12 Tubulo-interstitial nephritis, not specified as acute or chronic (principal); Z88.5 Allergy status to narcotic agent
CPT/HCPCS: 36415; 74176; 80048; 81001; 81025; 85025; 87086; 87088; 87186; 96365; 96375; 99284; A9270; J1885; J1956; J7120

== ENCOUNTER 2017-11-14 07:19 | Emergency (ER) | payer BC ==
[2017-11-14 07:36] VITALS: BP 114/87
--- NOTE | 2017-11-14 07:44 | EDM.PDOC ---
ED HPI GENERAL MEDICAL PROBLEM - General Chief Complaint: Chest Pain Stated Complaint: CHEST PAIN X 1 DAY Time Seen by Provider: 11/14/17 07:38 - History of Present Illness INITIAL COMMENTS - FREE TEXT/NARRATIVE: 37-year-old female presents emergency room with chest pain. Chest pain started a couple of days ago yesterday was the worst it has let up a little bit so far today. The pain started gradually and progressively got worse. Yesterday patient took a single Tylenol and this did help somewhat. Today the pain is less sharp and she describes it more as a pressure. The pain seems to be aggravated to some degree with deep inspiration. The patient has noticed a mild cough and has felt chilled at times. She denies any unusual leg tenderness or swelling. She has not had any abdominal discomfort no heartburn or reflux. Patient has not had problems with chest pain in the past has never had symptoms like this in the past. - Related Data Allergies Allergy/AdvReac Type Severity Reaction Status Date / Time hydrocodone Allergy Difficulty Verified 11/14/17 07:31 Breathing Home Meds: Home Meds . 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 Denies: Fever HEENT: Reports: No Symptoms Respiratory: Reports: Pleuritic Chest Pain, Cough. Denies: No Symptoms, Shortness of Breath, Sputum, Hemoptysis Cardiovascular: Reports: Chest Pain. Denies: No Symptoms Endocrine: Reports: No Symptoms GI/Abdominal: Reports: No Symptoms : Reports: No Symptoms Musculoskeletal: Reports: No Symptoms Skin: Reports: No Symptoms Neurological: Reports: No Symptoms ED EXAM, GENERAL - Physical Exam Exam: See Below Exam Limited By: No Limitations General Appearance: Alert, No Apparent Distress Head: Atraumatic, Normocephalic Neck: Normal Inspection, Supple, Non-Tender, Full Range of Motion. No: Lymphadenopathy (L), Lymphadenopathy (R) Respiratory/Chest: No Respiratory Distress, Lungs Clear, Normal Breath Sounds Cardiovascular: Regular Rate, Rhythm, No Edema, No Murmur, No Rub GI/Abdominal: Normal Bowel Sounds, Soft, Non-Tender Back Exam: Normal Inspection. No: CVA Tenderness (L), CVA Tenderness (R) Extremities: Normal Inspection, Normal Range of Motion, Non-Tender Neurological: Alert, Oriented, Normal Cognition Psychiatric: Normal Affect EKG INTERPRETATION EKG Date: 11/14/17 Rhythm: NSR [place]: Normal P-Wave: Present QRS: Normal ST-T: Normal QT: Normal Comparison: NA - No Prior EKG EKG Interpretation Comments: Normal EKG Course - Vital Signs Last Recorded V/S: Last Vital Signs Temp 36.3 C 11/14/17 07:31 Pulse 82 11/14/17 07:31 Resp 12 11/14/17 07:31 BP 114/87 11/14/17 07:31 Pulse Ox 100 11/14/17 07:31 - Orders/Labs/Meds Orders: Active Orders 24 hr Category Date Time Status EKG Documentation Completion [RC] STAT Care 11/14/17 07:45 Active Chest 2V [CR] Stat Exams 11/14/17 07:45 Taken Labs: Laboratory Tests 11/14/17 11/14/17 11/14/17 Range/Units 07:55 07:55 07:55 WBC 5.74 (3.98-10.04) K/mm3 RBC 4.84 (3.98-5.22) M/mm3 Hgb 12.9 (11.2-15.7) gm/L Hct 39.2 (34.1-44.9) % MCV 81.0 (79.4-94.8) fl MCH 26.7 (25.6-32.2) pg MCHC 32.9 (32.2-35.5) g/dl RDW Std Deviation 40.3 (36.4-46.3) fL Plt Count 206 (182-369) K/mm3 MPV 10.9 (9.4-12.3) fl Neutrophils % (Manual) 70 H (40-60) % Band Neutrophils % 0 (0-10) % Lymphocytes % (Manual) 28 (20-40) % Atypical Lymphs % 0 % Monocytes % (Manual) 2 (2-10) % Eosinophils % (Manual) 0 L (0.7-5.8) % Basophils % (Manual) 0 L (0.1-1.2) Platelet Estimate Adequate RBC Morph Comment Normal ESR (0-20) mm/hr D-Dimer, Quantitative 0.49 (0.19-0.50) mg/L Sodium 136 (136-145) mEq/L Potassium 3.5 (3.5-5.1) mEq/L Chloride 103 (98-107) mEq/L Carbon Dioxide 26 (21-32) mEq/L Anion Gap 10.5 (5-15) BUN 10 (7-18) mg/dL Creatinine 0.8 (0.55-1.02) mg/dL Est Cr Clr Drug Dosing 88.32 mL/min Estimated GFR (MDRD) > 60 (>60) mL/min BUN/Creatinine Ratio 12.5 L (14-18) Glucose 87 (74-106) mg/dL Calcium 8.9 (8.5-10.1) mg/dL Total Bilirubin 0.4 (0.2-1.0) mg/dL AST 23 (15-37) U/L ALT 37 (14-59) U/L Alkaline Phosphatase 72 (46-116) U/L Troponin I < 0.017 (0.00-0.056) ng/mL C-Reactive Protein (<1.0) mg/dL Total Protein 7.4 (6.4-8.2) g/dl Albumin 3.4 (3.4-5.0) g/dl Globulin 4.0 gm/dL Albumin/Globulin Ratio 0.9 L (1-2) 11/14/17 11/14/17 Range/Units 07:55 07:55 WBC (3.98-10.04) K/mm3 RBC (3.98-5.22) M/mm3 Hgb (11.2-15.7) gm/L Hct (34.1-44.9) % MCV (79.4-94.8) fl MCH (25.6-32.2) pg MCHC (32.2-35.5) g/dl RDW Std Deviation (36.4-46.3) fL Plt Count (182-369) K/mm3 MPV (9.4-12.3) fl Neutrophils % (Manual) (40-60) % Band Neutrophils % (0-10) % Lymphocytes % (Manual) (20-40) % Atypical Lymphs % % Monocytes % (Manual) (2-10) % Eosinophils % (Manual) (0.7-5.8) % Basophils % (Manual) (0.1-1.2) Platelet Estimate RBC Morph Comment ESR 23 H (0-20) mm/hr D-Dimer, Quantitative (0.19-0.50) mg/L Sodium (136-145) mEq/L Potassium (3.5-5.1) mEq/L Chloride (98-107) mEq/L Carbon Dioxide (21-32) mEq/L Anion Gap (5-15) BUN (7-18) mg/dL Creatinine (0.55-1.02) mg/dL Est Cr Clr Drug Dosing mL/min Estimated GFR (MDRD) (>60) mL/min BUN/Creatinine Ratio (14-18) Glucose (74-106) mg/dL Calcium (8.5-10.1) mg/dL Total Bilirubin (0.2-1.0) mg/dL AST (15-37) U/L ALT (14-59) U/L Alkaline Phosphatase (46-116) U/L Troponin I (0.00-0.056) ng/mL C-Reactive Protein < 0.2 (<1.0) mg/dL Total Protein (6.4-8.2) g/dl Albumin (3.4-5.0) g/dl Globulin gm/dL Albumin/Globulin Ratio (1-2) - Re-Assessments/Exams Free Text/Narrative Re-Assessment/Exam: 11/14/17 10:28 Laboratory evaluation is unrevealing so other than a sedimentation rate that is minimally elevated at 23. D-dimer is normal but at the upper end of normal. C- reactive protein normal. It is point patient is not having any GI symptoms whatsoever with this mild cough she has this could be secondary to viral syndrome. Patient be started on [id number] ibuprofen or naproxen we discussed proper dosing and to take with food and she agrees to follow-up in the clinic on Sunday. Departure - Departure Time of Disposition: 10:29 Disposition: Home, Self-Care 01 Clinical Impression: Pleurisy Referrals: PCP,None [Primary Care Provider] - Forms: ED Department Discharge Additional Instructions: Return to the emergency room with any questions problems or worsening symptoms. Use ibuprofen or Aleve as needed for discomfort be sure to take with food. Follow-up in the Hospital clinic on Sunday for recheck [phone] call today to schedule a follow-up appointment. - My Orders Last 24 Hours: My Active Orders 11/14/17 07:45 EKG Documentation Completion [RC] STAT Chest 2V [CR] Stat - Assessment/Plan Last 24 Hours: My Active Orders 11/14/17 07:45 EKG Documentation Completion [RC] STAT Chest 2V [CR] Stat
--- NOTE | 2017-11-16 09:34 | CR ---
Chest: Two views of the chest were obtained. Comparison: No prior chest x-ray. Heart size and mediastinum are normal. Lungs are clear. Bony structures are unremarkable. Impression: 1. Nothing acute is seen on two-view chest x-ray. Diagnostic code #1
== END 2017-11-14 10:34 | disposition home or self-care (01) ==
LOC: JD.ED 07:19
DX: R09.1 Pleurisy (principal); Z88.6 Allergy status to analgesic agent
CPT/HCPCS: 36415; 71046; 71046-26; 80053; 84484; 85007; 85027; 85379; 85652; 86140; 93005; 93010; 99284-25

== ENCOUNTER 2018-10-21 08:30 | Emergency (ER) | payer BC, OTHER ==
[2018-10-21] MEDS ORDERED: Dexamethasone 4 MG/ML 5 ML MDV IV ONE (08:52)
[2018-10-21] MEDS ORDERED: HYDROmorphone 0.5 MG/0.5 ML Syringe IVPUSH ONE (08:52)
[2018-10-21] MEDS ORDERED: Metoclopramide 10 MG/2 ML SDV IVPUSH ONE (08:53)
--- NOTE | 2018-10-21 08:57 | EDM.PDOC ---
ED HPI GENERAL MEDICAL PROBLEM - General Chief Complaint: Back Pain or Injury Stated Complaint: BACK AND LEG INJURY Time Seen by Provider: 10/21/18 08:51 Source of Information: Reports: Patient, Family (spouse) History Limitations: Reports: No Limitations - History of Present Illness INITIAL COMMENTS - FREE TEXT/NARRATIVE: 37-year-old female presents to the ED due to severe left low back pain and buttock pain and rating down the L5 nerve or distribution to her left foot. Patient has chronic low back pain problems for about 13 years. She is meant over yesterday to fern picker some laundry from the floor and developed sudden onset of severe worsening of the shooting pain down her left leg. She never slept at all last night due to the severity of the pain. Patient has had x-rays on her low back in the past but never any significant investigations by way of CT or MRI. He has not lost any control of her bowel or bladder. No chance of . Current pain is rated as 10 out of 10. Onset: Other (Chronic problems with low back pain left side primarily mostly in her buttock for about 13 years. Intermittent flareups of pain. Last night after bending over she developed severe pain shooting all the way down her left leg to her foot) Onset Date: 10/21/18 Duration: Hour(s): Location: Reports: Back (Diffuse left-sided low back pain radiating down the L5 nerve root distribution buttock and outer aspect of her left leg to the left foot.), Lower Extremity, Left, Radiates to (Left lower extremity to the left foot i.e. severe sciatica due to L5 nerve root compression.) Quality: Reports: Ache, Burning, Throbbing Severity: Severe Improves with: Reports: None (10 out of 10 position is carpal.) Worsens with: Reports: Other. Denies: Movement Context: Denies: Activity, Exercise (Weightbearing is very difficult), Lifting, Sick Contact, Other Associated Symptoms: Reports: Weakness (Left leg). Denies: No Other Symptoms, Chest Pain, Cough, cough w sputum, Diaphoresis, Fever/Chills, Headaches, Loss of Appetite, Nausea/Vomiting, Rash, Seizure, Shortness of Breath Treatments GOVERNMENT CLERK: Reports: Acetaminophen, NSAIDS Lower Back Pain Score (Numeric/FACES): 9 - Related Data Allergies Allergy/AdvReac Type Severity Reaction Status Date / Time hydrocodone Allergy Difficulty Verified 10/21/18 08:38 Breathing Home Meds: Home Meds Diclofenac Sodium [Voltaren] 50 mg PO TID #30 tab.ec 10/21/18 [Rx] HYDROmorphone [Dilaudid] 2 mg PO Q6H PRN #20 tab 10/21/18 [Rx] predniSONE [Deltasone] 20 mg PO ASDIRECTED #15 tablet 10/21/18 [Rx] Past Medical History HEENT History: Reports: Impaired Vision Cardiovascular History: Reports: None Respiratory History: Reports: None Gastrointestinal History: Reports: GERD (last week) Other Genitourinary History: ptwas born with two ureters, 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 Denies: Fever, Chills HEENT: Reports: No Symptoms Respiratory: Reports: No Symptoms Cardiovascular: Reports: No Symptoms Endocrine: Reports: No Symptoms GI/Abdominal: Reports: No Symptoms, Other (No loss of bowel or bladder control.) : Reports: No Symptoms Musculoskeletal: Reports: Back Pain (Chronic left-sided low back pain for many years but never to this severity that it is now.), Leg Pain (Left leg pain in the distribution of the L5 nerve root all the way down to her left lateral foot. ) Skin: Reports: Other (Paresthesias burning pain left buttock and calf.) Neurological: Reports: Paresthesia Psychiatric: Reports: No Symptoms (Left lower extremity) Hematologic/Lymphatic: Reports: No Symptoms ED EXAM,LOWER BACK PAIN/INJURY - Physical Exam Exam: See Below Exam Limited By: No Limitations General Appearance: Alert, WD/WN, Moderate Distress (She is in obvious discomfort with hardly any position being comfortable on the bed. Prefers to lie with her left leg flexed.) Eye Exam: Bilateral Eye: Normal Inspection Respiratory/Chest: No Respiratory Distress, Lungs Clear, Normal Breath Sounds, No Accessory Muscle Use, Respiratory Distress Cardiovascular: Normal Peripheral Pulses, Regular Rate, Rhythm, No Edema, No Gallop, No Murmur (Mild tachypnea due to pain response.), No Rub GI/Abdominal: Normal Bowel Sounds, Soft, Non-Tender, No Organomegaly, No Abnormal Bruit, No Mass, Pelvis Stable Back Exam: Other (Very minimal pain on firm palpation over the L5 facet joints) Extremities: Normal Inspection ( left side. Nose paraspinal muscle spasm noted.) , Limited Range of Motion, Other (She has full range of motion i.e. internal/ external rotation of both hips although external rotation of the right hip will make pain worse on the left side.). No: Normal Range of Motion, Non-Tender, No Pedal Edema, Normal Capillary Refill, Pedal Edema Neurological: Alert, Normal Mood/Affect, Oriented x 3, Other (She does have pain along the left sacroiliac joint as compared to the right. Straight leg raising is only to 25 on the left with severe pain shooting down the leg. Positive bowstring with straight leg raising on the right side to only 30 with left-sided pain. She has weakness of the great toe flexors on the left side.). No: Normal Dorsiflexion (Weak dorsiflexors on the left side.) DTR - Lower Extremities: 1+: Ankle (L), 2+: Knee (R), Knee (L), Ankle (R) Psychiatric: Normal Affect, Normal Mood, Anxious, Other (Appears very tired.) Skin Exam: Warm, Dry, Intact, Normal Color, No Rash Course - Vital Signs Last Recorded V/S: Last Vital Signs Temp 36.7 C 10/21/18 11:59 Pulse 69 10/21/18 11:59 Resp 16 10/21/18 11:59 BP 101/71 10/21/18 11:59 Pulse Ox 99 10/21/18 11:59 - Orders/Labs/Meds Orders: Active Orders 24 hr Category Date Time Status Dextrose 5%-0.9% NaCl [Dextrose 5%-Normal Saline] 1,000 Med 10/21/18 09:00 Active ml IV ASDIRECTED Ketorolac [Toradol] Med 10/21/18 09:00 Active 30 mg IVPUSH ONETIME Medication Orders Dextrose/Sodium Chloride (Dextrose 5%-Normal Saline) 1,000 mls @ 150 mls/hr IV ASDIRECTED SHORTY Last Admin: 10/21/18 09:12 Dose: 150 mls/hr Ketorolac Tromethamine (Toradol) 30 mg IVPUSH ONETIME SHORTY Last Admin: 10/21/18 09:10 Dose: 30 mg Meds: Medications Generic Name Dose Route Start Last Admin Trade Name Freq PRN Reason Stop Dose Admin Dextrose/Sodium Chloride 1,000 mls @ 150 mls/hr 10/21/18 09:00 10/21/18 09:12 Dextrose 5%-Normal Saline IV 150 mls/hr ASDIRECTED SHORTY Administration Ketorolac Tromethamine 30 mg 10/21/18 09:00 10/21/18 09:10 Toradol IVPUSH 30 mg ONETIME SHORTY Administration Discontinued Medications Generic Name Dose Route Start Last Admin Trade Name Freq PRN Reason Stop Dose Admin Dexamethasone 10 mg 10/21/18 08:52 10/21/18 09:04 Dexamethasone IV 10/21/18 08:53 10 mg ONETIME ONE Administration Hydromorphone HCl 0.5 mg 10/21/18 08:52 10/21/18 10:19 Dilaudid IVPUSH 10/21/18 08:53 0.5 mg ONETIME ONE Administration Metoclopramide HCl 7.5 mg 10/21/18 08:53 10/21/18 09:07 Reglan IVPUSH 10/21/18 08:54 7.5 mg ONETIME ONE Administration - Radiology Interpretation Free Text/Narrative:: 37-year-old female presents to the ED with acute exacerbation of chronic low back pain syndrome. She's never been diagnosed as having a disc before. She's had x-rays of her back which overall was prove normal. She states she put up with back pain for about 13 years. She bent over last evening to fern picker something from the floor and developed excruciating pain in her left but talk rating down her left leg which has persisted. Unable to sleep all night due to the severity of the pain. Leg raising is positive bilaterally with a positive bowstring sign. She has pain in the distribution of the L5 nerve root on the left side. There is availability of MRI about 11:30 this morning. Plan IV D5 normal saline at 150 mils per hour. Will be given Dilaudid 50 mg IV with Reglan 7.5 mg IV and Toradol 30 mg IV for pain response. Will also be given dexamethasone 10 mg IV. - Re-Assessments/Exams Free Text/Narrative Re-Assessment/Exam: 10/21/18 11:36 MRI of the lumbar spine has been completed. It shows bulging of the disc spaces at L3-4 and L4-5 and marked disc herniation at L5-S1 level worse on the left side causing compression of the spinal cord at this level. Nerve root at this area appears to be free of compression. Awaiting the radiologist's report. Discussed the findings with the patient. She did finally accept the Dilaudid 0.5 mg and it did work well for her without any significant side effects. 0.5 mg IV. They would like to travel to [facility] for definitive surgical care. I will try and speak with on-call neurosurgeon and see when I can get her an appointment. 10/21/18 13:[address] with [address]. Brooks neurosurgeon at [facility] in [place]. He did look at the MRI and agrees that there is a significant disc protrusion compressing the central cord at the L5 level which correlates with patient's pain syndrome. Indicates that now days that the patient has to undergo at least 6 weeks of physiotherapy before they become surgical candidates if they fail physio-. I will therefore get the patient to physiotherapy program as soon as possible. He will see her on Sunday this week at 11:30 AM. Departure - Departure Time of Disposition: 13:05 Disposition: Home, Self-Care 01 Condition: Fair Clinical Impression: Sciatica of left side associated with disorder of lumbar spine, Sciatica - Discharge Information *PRESCRIPTION DRUG MONITORING PROGRAM REVIEWED*: Not Applicable *COPY OF PRESCRIPTION DRUG MONITORING REPORT IN PATIENT KAE: Not Applicable Prescriptions: Diclofenac Sodium [Voltaren] 50 mg PO TID #30 tab.ec HYDROmorphone [Dilaudid] 2 mg PO Q6H PRN #20 tab PRN Reason: Sciatica left leg predniSONE [Deltasone] 20 mg PO ASDIRECTED #15 tablet Referrals: PCP,None [Primary Care Provider] - Forms: ED Department Discharge Additional Instructions: Evaluation the emergency room today in regards to severe pain rating down the L5 nerve or distribution in her left buttock and all way down the outer aspect of your left leg to her foot. MRI confirms clinical suspicion of a herniated disc at the L5 level which is causing central cord compression. I've spoken with neurosurgeon in [place] at [facility] and he will see you in clinic on Sunday this week at 11:30 AM. Please arrive 15 minutes early to do paperwork. The clinic is called [facility]. It is at [address] [facility] in [place]. Member Alfie is on central standard time and we are moms dinnertime so this really means 10:30 are time. In the meantime I will send away notes and requisition to get you into physiotherapy program which they recommend for. Of 6 weeks before they entertain any sort of surgical management. Treatment is to be Voltaren 50 mg 3 times daily with food for the next 10 days to relieve pain and inflammation. Is on 20 mg with breakfast and supper for 5 days and then once in the morning only for another 5 days to help reduce inflammation of the disc and the spinal cord. Locations are non-addicting and but should be taken with food. Pain medication will be Dilaudid 2 mg tablet 1 every 6 hours as necessary for relief of severe pain. As we discussed these are potentially addicting and use primarily at bedtime so that she can sleep. - My Orders Last 24 Hours: My Active Orders 10/21/18 09:00 Dextrose 5%-0.9% NaCl [Dextrose 5%-Normal Saline] 1,000 ml IV ASDIRECTED Ketorolac [Toradol] 30 mg IVPUSH ONETIME - Assessment/Plan Last 24 Hours: My Active Orders 10/21/18 09:00 Dextrose 5%-0.9% NaCl [Dextrose 5%-Normal Saline] 1,000 ml IV ASDIRECTED Ketorolac [Toradol] 30 mg IVPUSH ONETIME
[2018-10-21] MEDS ORDERED: Ketorolac 30 MG/ML SDV IVPUSH SCH (09:00)
[2018-10-21] MEDS ORDERED: Dextrose 5%-0.9% NaCl 1,000 ML IV SCH (09:00)
[2018-10-21 12:00] VITALS: BP 101/71; PULSE 69
--- NOTE | 2018-10-21 12:52 | MR ---
MRI lumbar spine Technique: Multiple T1-weighted axial images were obtained from above T12-L1 disc through the L5-S1 disc. T2-weighted axial images were obtained from above the L1-L2 disc through the L5-S1 disc. T1, T2 and T2 fat-suppressed inversion recovery sagittal images were obtained. Comparison: No previous lumbar spine imaging is available. Findings: T12-L1: Posterior disc is preserved. No central canal stenosis or neural foraminal stenosis is seen. L1-L2: Posterior disc is preserved. No central canal stenosis or neural foraminal stenosis is seen. L2-L3: Posterior disc is preserved. No central canal stenosis or neural foraminal stenosis is seen. L3-L4: Posterior disc is preserved. No central canal stenosis or neural foraminal stenosis is seen. L3-L4: Small annular tear is seen posteriorly to the midline. Minimal circumferential disc bulge is seen. Posterior disc maintains a planar margin. Minimal degenerative apophyseal change is noted. No central canal stenosis or neural foraminal stenosis is seen. L4-L5: Small annular tear is seen posteriorly to the midline. Minimal circumferential disc bulge is seen. Posterior disc maintains a planar margin. No central canal stenosis or neural foraminal stenosis is seen. L5-S1: Large disc herniation is seen posteriorly to the midline and eccentric to the left of midline. This causes central canal stenosis. Neural foramina are patent were the nerve roots exit. Minimal degenerative apophyseal change is seen. Conus medullaris and cauda equina show no abnormal signal or mass. Degenerative dehydration change is noted within the L3-L4 through L5-S1 discs. Impression: 1. Large disc herniation at L5-S1 to the midline and eccentric to the left of midline. This disc herniation causes central canal stenosis. 2. Slight degenerative disc change at L3-L4 and L4-L5 as noted above. Diagnostic code #3
== END 2018-10-21 13:30 | disposition home or self-care (01) ==
LOC: JD.ED 08:30
DX: M54.42 Lumbago with sciatica, left side (principal); Z88.5 Allergy status to narcotic agent; Z79.899 Other long term (current) drug therapy
CPT/HCPCS: 72148; 96361; 96374; 96375; 99283; J1100; J1170; J1885; J2765; J7042; 99284

== ENCOUNTER 2023-02-07 09:16 | Emergency (ER) | payer BC ==
[2023-02-07] MEDS ORDERED: Ondansetron 4 MG Tab.DIS PO ONE (09:51)
[2023-02-07 10:17] LABS: BASOPHILS PERCENT AUTO 0.2 % (0.0-1.0); HEMATOCRIT 40.8 % (37.0-47.0); HEMOGLOBIN 13.3 gm/dl (12.0-16.0); IMMATURE GRAN ABSOLUTE AUTO 0.04 K/mm3 (0.00-0.05); IMMATURE GRAN PERCENT AUTO 0.4 % (0.0-0.4); LYMPHOCYTES ABSOLUTE AUTO 1.1 K/mm3 (1.0-4.8); LYMPHOCYTES PERCENT AUTO 10.8 % (24.0-44.0); MEAN CORPUSCULAR HEMOGLOBIN 27.1 pg (28.0-32.0); MEAN CORPUSCULAR HGB CONC 32.6 g/dl (32.0-36.0); MEAN CORPUSCULAR VOLUME 83.1 fl (83.0-99.0); MEAN PLATELET VOLUME 10.4 fl (9.4-12.3); MONOCYTES ABSOLUTE AUTO 0.2 K/mm3 (0.0-0.8); NEUTROPHILS ABSOLUTE AUTO 8.5 K/mm3 (1.8-7.7); NEUTROPHILS PERCENT AUTO 86.6 % (41.0-71.0); PLATELET COUNT,PLT 225 K/mm3 (150-400); RED BLOOD CELL COUNT 4.91 M/mm3 (4.10-5.30); WHITE BLOOD CELL COUNT,WBC 9.78 K/mm3 (3.9-11.3)
[2023-02-07 10:30] LABS: APPEARANCE,URINE CLEAR (Clear); BILIRUBIN,URINE NEGATIVE (Negative); COLOR,URINE YELLOW (Yellow); GLUCOSE,URINE NEGATIVE (Negative); KETONES,URINE NEGATIVE (Negative); LEUKOCYTE ESTERASE,URINE NEGATIVE (Negative); NITRITE,URINE NEGATIVE (Negative); OCCULT BLOOD,URINE NEGATIVE (Negative); PH,URINE 8.5 (5.0-8.0); PROTEIN,URINE NEGATIVE (Negative); UROBILINOGEN,URINE 0.2 (0.2-1.0)
[2023-02-07 10:37] LABS: A/G RATIO 0.8 (1-2); ALBUMIN 3.6 g/dl (3.4-5.0); ANION GAP 12.7 (5-15); BILIRUBIN TOTAL 0.4 mg/dL (0.2-1.0); BUN/CREATININE RATIO 13.8 (14-18); CREATININE 0.8 mg/dL (0.55-1.02); EST CRCL DRUG DOSING (CG) 84.11 mL/min; POTASSIUM,K 3.7 mEq/L (3.5-5.1); PROTEIN TOTAL,TP 8.3 g/dl (6.4-8.2)
[2023-02-07 10:41] LABS: CORONAVIRUS COVID-19 NAA NEGATIVE (NEGATIVE); INFLUENZA A NAA NEGATIVE (NEGATIVE); RESPIRATORY SYNCYTIAL VIR NAA NEGATIVE (NEGATIVE)
[2023-02-07 10:44] LABS: BACTERIA,URINE MODERATE /hpf (FEW); EPITHELIAL CELLS,URINE 0-5 /hpf (0-5); MUCUS,URINE FEW /hpf (FEW); RBC,URINE 0-5 /hpf (0-5)
[2023-02-07 11:54] VITALS: BP 104/79; PULSE 71
== END 2023-02-07 11:12 | disposition home or self-care (01) ==
LOC: JD.ED 09:16
DX: N39.0 Urinary tract infection, site not specified (principal); R11.2 Nausea with vomiting, unspecified; K21.9 Gastro-esophageal reflux disease without esophagitis; Z79.899 Other long term (current) drug therapy; Z20.822 Contact with and (suspected) exposure to COVID-19
CPT/HCPCS: 0241U; 36415; 80053; 81001; 85025; 99284; A9270